=== PATIENT | male | born 1950 | race Caucasian/White ===

== ENCOUNTER → 2017-07-08 | Outpatient (CLI) | payer OTHER | LOC: COL.RAD 09:13 | DX: N28.89 Other specified disorders of kidney and ureter (principal) ==

== ENCOUNTER 2019-09-04 11:57 | Observation (INO) | payer OTHER ==
[~2019-09-04] VITALS: Ht 180.3 cm; Wt 95.5 kg
[2019-09-04 12:36] LABS: BASO % 0.4 % (0.0-2.0); EOS % 0.5 % (0-4.0); GRAN # 5.6 (1.4-6.5); HEMATOCRIT 46.7 % (42.0-52.0); HEMOGLOBIN 15.6 g/dl (13.5-18.0); LYMPH % 24.3 % (20.0-51.0); MEAN CELL VOLUME 92 fl (80.0-100.0); MEAN CORPUSCULAR HEMOGLOBIN 31 pg (27.0-31.0); MEAN CORPUSCULAR HGB CONC 33 g/dl (33.0-37.0); MEAN PLATELET VOLUME 8.6 fl (7.4-10.4); MONO # 0.5 (0.1-0.6); MONO % 6.4 % (1.7-9.3); PLATELET COUNT 245 K/mm3 (130-400); RED BLOOD COUNT 5.09 M/mm3 (4.20-5.60); REDCELL DISTRIBUTION WIDTH-CV 11.7 % (11.5-14.5)
[2019-09-04] MEDS ORDERED: PRINIVIL40 MG PO (12:38)
[2019-09-04] MEDS ORDERED: HCTZ 25MG TAB25 MG PO (12:38)
[2019-09-04] MEDS ORDERED: NEURONTIN800 MG/TAB PO (12:39)
[2019-09-04] MEDS ORDERED: TYLENOL PM EXTR1 TA1 PO (12:40)
[2019-09-04] MEDS ORDERED: LIVALO2 MG PO (12:40)
[2019-09-04] MEDS ORDERED: MULTI VITAMINS1 TAB PO (12:41)
[2019-09-04 12:57] LABS: ALANINE AMINOTRANSFERASE 24 U/L (21-72); ALBUMIN 4.4 gm/dL (3.5-5.0); ALKALINE PHOSPHATASE 72 U/L (50-136); ANION GAP 8 mmol/L (7-16); AST,SGOT 28 U/L (15-37); BILIRUBIN,TOTAL 0.5 mg/dL (0.0-1.0); BLOOD UREA NITROGEN 25 mg/dL (9-20); CALCIUM 9.4 mg/dL (8.4-10.2); CARBON DIOXIDE 30 mmol/L (22-30); CHLORIDE 101 mmol/L (98-107); CREATININE, serum 0.82 (0.66-1.25); GLUCOSE 88 mg/dL (74-106); PROTHROMBIN TIME 11.6 SECONDS (9.7-12.8); SODIUM 139 mmol/L (137-145); TOTAL PROTEIN 7.2 gm/dL (6.4-8.2)
[2019-09-04 13:07] LABS: TROPONIN-I < 0.012 ng/mL (0.000-0.035)
[2019-09-04 13:18] LABS: COLLECTION METHOD IN
[2019-09-04 13:25] LABS: MUCOUS Present /lpf; PH 7 (5-8); SQUAMOUS EPITHELIAL None Seen /hpf; URINE APPEARANCE Clear; URINE BACTERIA None Seen /hpf; URINE BILIRUBIN Negative (NEGATIVE); URINE BLOOD Negative (NEGATIVE); URINE COLOR Yellow; URINE GLUCOSE Negative (NEGATIVE); URINE KETONE Trace (NEGATIVE); URINE LEUKOCYTE ESTERASE Negative (NEGATIVE); URINE NITRATE Negative (NEGATIVE); URINE PROTEIN(semi-quant) Negative (NEGATIVE); URINE RBC 0-2 /hpf; URINE UROBILINOGEN Negative (NEGATIVE)
[2019-09-04 18:08] VITALS: BP 158/77; PULSE 69; TEMP 99.1
--- NOTE | 2019-09-04 19:10 | NUR ---
Rcvd report from MALGORZATA Welsh. Pt is sitting in recliner and has no c/o pain or discomfort. Family at bedside. Assessment completed. No concerns at this time.
[2019-09-04 20:03] VITALS: BP 135/79; PULSE 75; TEMP 98.7
--- NOTE | 2019-09-04 20:06 | NUR ---
Pt up to room 309 with at bedside. Pt is A&O and independent in room. Pt oriented to year, place, month, self. Pt states he doesn't remember much of earlier events. pt does appear to have sense of humor and jokes around, might be difficult to tell state of confusion. At this time appears to be oriented. Pt has RAC INT IV that flushes without complications. LS cta, on room air, breathing is even and unlabored. heart RRR, on tele. Pulses strong bilaterally. Pt denies pain, dizziness, SOB, N/V/D, vision changes, palpitations. No other concerns expressed. Pt BS checked, 64, given juice, crackers and received dinner shortly after. No other concerns expressed at this time.
[2019-09-04 23:36] VITALS: BP 123/65; PULSE 72; TEMP 99
[2019-09-05 06:27] LABS: BASO % 0.5 % (0.0-2.0); EOS # 0.1 (0.0-0.7); EOS % 1.4 % (0-4.0); GRAN # 4.9 (1.4-6.5); GRAN % 59.4 % (42.2-75.2); HEMATOCRIT 43.7 % (42.0-52.0); HEMOGLOBIN 14.9 g/dl (13.5-18.0); LYMPH # 2.6 (1.2-3.4); LYMPH % 30.8 % (20.0-51.0); MEAN CELL VOLUME 91 fl (80.0-100.0); MEAN CORPUSCULAR HEMOGLOBIN 31 pg (27.0-31.0); MEAN CORPUSCULAR HGB CONC 34 g/dl (33.0-37.0); MEAN PLATELET VOLUME 8.8 fl (7.4-10.4); MONO # 0.6 (0.1-0.6); MONO % 7.7 % (1.7-9.3); PLATELET COUNT 241 K/mm3 (130-400); RED BLOOD COUNT 4.81 M/mm3 (4.20-5.60); REDCELL DISTRIBUTION WIDTH-CV 11.9 % (11.5-14.5)
[2019-09-05 06:34] LABS: CALCIUM 9.3 mg/dL (8.4-10.2); CHOLESTEROL RISK RATIO 3.6; CREATININE, serum 0.87 (0.66-1.25); POTASSIUM 3.7 mmol/L (3.4-5.0)
[2019-09-05 08:06] VITALS: BP 126/67; PULSE 72
--- NOTE | 2019-09-05 10:48 | NUR ---
Plan: To return home with Ida as care support . Assess: Patient [place] with who is also head of the living will. Patient reports that he has a son who is also of support Ganesh . Patient indicated that he uses CPAP night and only that DME. Patient reports PCP is Dr. Raphael with no [facility]. Patient reports the use of [facility] for RX. Action: NO additional concerns are identified. Patient was educated on community resources and home health services which were declined. Nothing follows.
[2019-09-05 11:17] VITALS: BP 124/71; PULSE 75; TEMP 98.7
--- NOTE | 2019-09-05 11:25 | NUR ---
Pt assessment completed and charted. Morning medications administered per OCT. Pt is A&O, independent in room. Pt not scoring on stroke scale, neuro checks are WNL. Pt denies pain, dizziness, SOB, V/D, vision changes, lightheadedness, abdominal pain. Pt on room air, breathing is even and unlabored. pt on tele. Pulses strong bilaterally. LS cta, heart RRR. Pt had MRI completed this morning. Pt states he has some nausea, he thinks d/t the contrast from MRI, denies the need for anti-nausea medication at this time. No other concerns have been expressed at this time. at bedside, call light within reach. pt has walked w/ therapy.
[2019-09-05] MEDS ORDERED: ASPIRIN E.C. 8181 MG PO (11:45)
--- NOTE | 2019-09-05 12:26 | NUR ---
Mathematics Professor offered prayer and support with patient while spouse was in and out of room.
--- NOTE | 2019-09-05 14:32 | NUR ---
Pt discharge instructions discussed and reviewed w/ patient and who verbalized understanding. All questions answered. RAC IV dc'd w/ catheter tip intact w/o complications. No other concerns expressed. Pt escorted out via WC by MARJ Pearl.
== END 2019-09-05 14:30 | disposition home or self-care (01) ==
LOC: COL.ER 11:57 → MEDICAL 13:56
PROVIDERS: Emergency Medicine; Physician Assistant; ADMIT Hospitalist
DX: R41.82 Altered mental status, unspecified (principal); R41.3 Other amnesia; R51 Headache; I10 Essential (primary) hypertension; E78.5 Hyperlipidemia, unspecified; G62.9 Polyneuropathy, unspecified; I65.03 Occlusion and stenosis of bilateral vertebral arteries; I08.0 Rheumatic disorders of both mitral and aortic valves; I27.20 Pulmonary hypertension, unspecified
CPT/HCPCS: A9585; G0378; J1650; J3411; J7030; Q9967

== ENCOUNTER 2021-10-10 17:02 | Emergency (ER) | payer OTHER ==
[~2021-10-10] VITALS: Ht 180.3 cm; Wt 104.5 kg
[~2021-10-10 17:02] MED LIST: ASPIRIN E.C. 8181 MG PO; HCTZ 25MG TAB25 MG PO; LIVALO2 MG PO; MULTI VITAMINS1 TAB PO; NEURONTIN800 MG/TAB PO; PRINIVIL40 MG PO; TYLENOL PM EXTR1 TA1 PO
[2021-10-10 17:14] VITALS: TEMP 98.6
[2021-10-10 18:41] VITALS: BP 175/84; PULSE 74
== END 2021-10-10 18:52 | disposition home or self-care (01) ==
LOC: COL.ER 17:02
DX: S06.0X0A Concussion without loss of consciousness, initial encounter (principal); M54.2 Cervicalgia; I10 Essential (primary) hypertension; R41.3 Other amnesia; Z79.899 Other long term (current) drug therapy; W11.XXXA Fall on and from ladder, initial encounter